=== PATIENT | female | born 1980 | race Caucasian/White ===

== ENCOUNTER 2016-09-02 21:02 | Emergency (ER) | payer OTHER ==
[~2016-09-02] VITALS: Ht 160 cm; Wt 78.6 kg
[~2016-09-02 21:02] MED LIST: DPPI150 IM; MTR/600 PO; PRENTAB26 PO
[2016-09-02 21:07] VITALS: TEMP 37; Ht 160 cm; Wt 78.6 kg
[2016-09-02] MEDS ORDERED: SODIUM CHLORIDE 0.9% 1000ML 500 ML IV STA (21:25)
[2016-09-02] MEDS ORDERED: LORAZEPAM 2 MG/ML 1 ML VIAL IV STA (21:25)
--- NOTE | 2016-09-02 21:36 | EMERGENCY ROOM VISIT NOTE ---
History Report prepared by Prince: Irena Langston Under the Supervision of: Dr. Sanjeev Glynn M.D. First contact with patient: 21:10 Chief Complaint: WEAKNESS Stated Complaint: WEAK, SHAKING History of Present Illness The patient is a 36 year old female who presents to the Emergency Room with complaints of worsening neurological symptoms for the past month. Before [place] the patient started experiencing numbness in her left hand that slowly progressed up her arm and into her neck. Shortly after that she developed numbness in her left foot. She saw her PCP for these symptoms and had an x-ray of her lumbar spine. Today at work she developed a pressure in her head that went down the back of her neck. She describes a "squeezing" feeling and numbness and tingling in her neck. The patient reports, "It feels like there is a scarf wrapped really tightly around my neck." She took 2 Excedrin Migraine today after work and got in the shower. While in the shower she developed shaking and tremors. She has been experiencing this shaking for the past 2 hours. She states that her left arm and leg are still numb. She is feeling generally weak. She also notes nausea and tachycardia. She felt feverish at home. The patient rates her pain as a 4.5/10 in severity. She did not drink very much water today. She denies any history of migraine headaches. The patient has an appointment with Dr. Dee of neurology on September 27. She denies urinary symptoms, abdominal pain, LOC and passing out. She denies any new or worsening stress in her left. She reports a history of serotonin syndrome. She currently takes Zoloft and Trazodone. These medications were last adjusted in June. Source of History: patient Onset: 1 month ago Position: other (neurological) Symptom Intensity: 4.5/10 Quality: numbness, other (weakness) Timing: worsening Associated Symptoms: + fevers, + headache, + nausea, + neck pain, + numbness , + weakness, No LOC, No abdominal pain, No urinary symptoms Note: Pt notes shaking and tremors. Review of Systems See HPI for pertinent positives & negatives. A total of 10 systems reviewed and were otherwise negative. Past Medical & Surgical Medical Problems: (1) Gestational diabetes mellitus (2) Intrauterine (3) Leakage of amniotic fluid (4) Mild pre-eclampsia (5) Onset (spontaneous) of labor after 37 completed weeks of gestation but before 39 completed weeks gestation, with delivery by (planned) section (6) Superficial phlebitis Surgical Problems: (1) Previous section complicating , antepartum condition or complication Family History Cancer Diabetes mellitus Gallbladder disease Heart disease Hypertension Lung disease Social History Smoking Status: Never Smoker Alcohol Use: none Drug Use: none Marital Status: Housing Status: lives with family Occupation Status: student Current/Historical Medications Scheduled Doxycycline Hyclate (Doxycycline Hyclate), 20 MG PO DAILY Fish Oil (Toano-3), 1 CAP PO DAILY Levonorgestrel (Iud) (Mirena), 20 MCG INT UTER UD Multiple Vitamins W/ Minerals (Womens One Daily), 1 TAB PO DAILY Ranitidine (Zantac), 150 MG PO BID Sertraline HCl (Sertraline HCl), 50 MG PO DAILY Trazodone Hcl (Trazodone), 25 MG PO HS Scheduled PRN Ibuprofen (Advil), 800 MG PO BID PRN for Pain Polyethylene (Polyethylene Glycol 3350), 1 TBS PO Q2D PRN for Constipation Allergies Coded Allergies: Nalbuphine (Verified Allergy, Severe, NAUSEA, 12/29/15) Propofol (Verified Allergy, Unknown, depressed and crying, 11/11/15) Uncoded Allergies: ADHESIVE (Allergy, Unknown, rash, 11/11/15) Physical Exam Vital Signs Date Time Temp Pulse Resp B/P Pulse Ox O2 Delivery O2 Flow Rate FiO2 09/03/16 00:16 73 16 124/67 98 09/02/16 23:16 93 18 129/72 96 Room Air 09/02/16 21:45 Room Air 09/02/16 21:07 37.0 98 20 148/103 98 Room Air Physical Exam GENERAL: Patient is in no acute distress. HEENT: No acute trauma, normocephalic atraumatic, mucous membranes moist, no nasal congestion, no scleral icterus. NECK: No stridor, no adenopathy, no meningismus, trachea is midline. LUNGS: Clear to auscultation bilaterally, no wheeze, no rhonchi, breath sounds equal. HEART: Without murmurs gallops or rubs, regular rate and rhythm. ABDOMEN: Soft, nontender, bowel sounds positive, no hernias, no peritonitis. EXTREMITIES: No cyanosis or edema, full range of motion of all the joints without pain or difficulty, no signs for acute trauma. NEUROLOGIC: Awake and alert, no speech slur or facial droop. Normal cerebellar dysfunction bilaterally, no pronator drift. Generalized tremor to all extremities. SKIN: No rash, no jaundice, no diaphoresis. Medical Decision & Procedures ER Provider Diagnostic Interpretation: Radiology results and stated below per my review and radiologist interpretation: MRI HEAD: No acute infarct, mass effect or evidence of acute hemorrhage No evidence of abnormal enhancement A couple of small scattered white matter foci of T2 prolongation are nonspecific Can be seen with migraines, demyelinating process, collagen vascular disease, chronoic small vessel ischemic change Ventricles are within limits and midline Major intracranial flow voids appear within limits Radiologist: Bennett Morrell M.D. MRI C SPINE: Mild posterior disc osteophyte complexes C5-6 and C6-7 with appearance of mild indentation on the ventral surface of the code at C5-6 in combination with focal prominence of the posterior ligaments at C6-7 results in very mild indentation on the dorsal surface of the cord for example sagittal 7 of series 10 No evidence of abnormal cord signal No evidence of abnormal enhancement Radiologist: Bennett Morrell M.D. Laboratory Results 09/02/16 21:55 Red Blood Count 4.30, Mean Corpuscular Volume 92.6, Mean Corpuscular Hemoglobin 32.1, Mean Corpuscular Hemoglobin Concent 34.7, Mean Platelet Volume 10.0, Neutrophils (%) (Auto) 74.6, Lymphocytes (%) (Auto) 15.5, Monocytes (%) (Auto) 7.9, Eosinophils (%) (Auto) 1.6, Basophils (%) (Auto) 0.2, Neutrophils # (Auto) 8.75, Lymphocytes # (Auto) 1.82, Monocytes # (Auto) 0.93, Eosinophils # (Auto) 0.19, Basophils # (Auto) 0.02 09/02/16 21:55 Test 09/02/16 21:55 White Blood Count 11.73 K/uL (4.8-10.8) Red Blood Count 4.30 M/uL (4.2-5.4) Hemoglobin 13.8 g/dL (12.0-16.0) Hematocrit 39.8 % (37-47) Mean Corpuscular Volume 92.6 fL (80-100) Mean Corpuscular Hemoglobin 32.1 pg (25-34) Mean Corpuscular Hemoglobin Concent 34.7 g/dl (32-36) Platelet Count 328 K/uL (130-400) Mean Platelet Volume 10.0 fL (7.4-10.4) Neutrophils (%) (Auto) 74.6 % Lymphocytes (%) (Auto) 15.5 % Monocytes (%) (Auto) 7.9 % Eosinophils (%) (Auto) 1.6 % Basophils (%) (Auto) 0.2 % Neutrophils # (Auto) 8.75 K/uL (1.4-6.5) Lymphocytes # (Auto) 1.82 K/uL (1.2-3.4) Monocytes # (Auto) 0.93 K/uL (0.11-0.59) Eosinophils # (Auto) 0.19 K/uL (0-0.5) Basophils # (Auto) 0.02 K/uL (0-0.2) RDW Standard Deviation 41.6 fL (36.4-46.3) RDW Coefficient of Variation 12.3 % (11.5-14.5) Immature Granulocyte % (Auto) 0.2 % Immature Granulocyte # (Auto) 0.02 K/uL (0.00-0.02) Anion Gap 10.0 mmol/L (3-11) Est Creatinine Clear Calc Drug Dose 89.4 ml/min Estimated GFR () 99.4 Estimated GFR (Non- 85.7 BUN/Creatinine Ratio 19.7 (10-20) Calcium Level 9.2 mg/dl (8.5-10.1) Magnesium Level 2.0 mg/dl (1.8-2.4) Total Bilirubin 0.3 mg/dl (0.2-1) Aspartate Amino Transf (AST/SGOT) 15 U/L (15-37) Alanine Aminotransferase (ALT/SGPT) 19 U/L (12-78) Alkaline Phosphatase 62 U/L (45-117) Total Creatine Kinase 157 U/L (26-192) Total Protein 7.9 gm/dl (6.4-8.2) Albumin 4.5 gm/dl (3.4-5.0) Globulin 3.4 gm/dl (2.5-4.0) Albumin/Globulin Ratio 1.3 (0.9-2) Thyroid Stimulating Hormone (TSH) 7.500 uIu/ml (0.300-4.500) Free Thyroxine 0.83 ng/dl (0.80-1.60) Human Chorionic Gonadotropin, Qual NEG (NEG) Lyme Disease IgG Antibody NEG (NEG) Lyme Disease IgM Antibody NEG (NEG) Laboratory results reviewed by me. Medications Administered Medications (Trade) Dose Ordered Sig/Dom Route Start Time Stop Time Status Last Admin Dose Admin Sodium Chloride (Nss 1000ml) 500 ml @ 999 mls/hr Q31M STAT IV 09/02/16 21:25 09/02/16 21:55 DC 09/02/16 21:56 999 MLS/HR Lorazepam (Ativan Inj) 1 mg NOW STAT IV 09/02/16 21:25 09/02/16 21:31 DC 09/02/16 21:56 1 MG ECG Indication: weakness Rate (beats per minute): 86 Rhythm: sinus with SA Findings: no acute ischemic change, no ectopy ED Course 2109: The patient was evaluated in room B9. A complete history and physical exam was performed. 5: Ativan 1 mg IV, NSS 500 ml @ 999 mls/hr IV 2330: Gadavist 8 mmol IV 2354: I updated the patient on her results. 2357: At this time I spoke with Dr. Tapia of [facility] neurology. We discussed the patient's results and treatment plan. The patient will follow-up with neurology in the office at her scheduled appointment with Dr. Dee. 0001: I reassessed the patient at this time. She is feeling better and resting comfortably. I discussed the results and treatment plan with the patient. I answered all pertaining questions that she had. She expressed understanding and verbalized agreement. The patient will be discharged home. Medical Decision Differential diagnoses includes medication reaction, anxiety, stroke, MS, transverse myelitis, intracranial mass, cervical disc disease, electrolyte imbalance, thyroid disorder. There is a mild leukocytosis, this could be consistent with infection or just her stress and worry. There was no anemia. No significant electrolyte abnormality, kidney failure or hepatitis. The patient appears to be in a euthyroid state. testing is negative. Lyme disease testing is negative. EKG shows a normal sinus rhythm, no acute ischemia. Brain MRI shows a few white plaques of unknown significance, follow-up was suggested. There was no tumor or stroke findings. Cervical spine MRI does not show evidence for cord abnormality. There was some disc disease present with some subtle pinching of the cervical cord. The patient received IV saline, IV Ativan. She seems better. I discussed her case with the on-call neurologist. Follow up as an outpatient was suggested. At this point, the cause for the entire presentation is unclear. She will need close neurologic follow-up in the future, she understands. Consults Time Called: [phone] Consulting Physician: Dr. Tapia Returned Call: [phone] At this time I spoke with Dr. Tapia of [facility] neurology. We discussed the patient's results and treatment plan. The patient will follow-up with neurology in the office at her scheduled appointment with Dr. Dee. Impression Primary Impression: Left sided numbness Additional Impression: Tremor Scribe Attestation The scribe's documentation has been prepared under my direction and personally reviewed by me in its entirety. I confirm that the note above accurately reflects all work, treatment, procedures, and medical decision making performed by me. Departure Information Dispostion Home / Self-Care Referrals No Doctor, Assigned (PCP) Forms HOME CARE DOCUMENTATION FORM, IMPORTANT VISIT INFORMATION Patient Instructions A Signature Page, My [employer] Additional Instructions more supportive pillow as discussed return if worsening lab testing was all ok follow with neurology for recheck and for more discussion on your MRI results
[2016-09-02] MEDS ORDERED: LEVOIUD INT UTER (21:59)
[2016-09-02] MEDS ORDERED: IBUP-1050 PO (21:59)
[2016-09-02] MEDS ORDERED: DOXY20TA3 PO (21:59)
[2016-09-02] MEDS ORDERED: TRAZ50TA35 PO (21:59)
[2016-09-02] MEDS ORDERED: MULT-240 PO (21:59)
[2016-09-02] MEDS ORDERED: ZLF/50 PO (21:59)
[2016-09-02] MEDS ORDERED: ZNTT/150 PO (21:59)
[2016-09-02] MEDS ORDERED: MRLP527 PO (22:03)
[2016-09-02] MEDS ORDERED: OMEG10007 PO (22:03)
[2016-09-02 22:07] LABS: BASO % 0.2 %; BASO ABS # 0.02 K/uL (0-0.2); COMPLETE YES; EOS % 1.6 %; HEMATOCRIT 39.8 % (37-47); IG% 0.2 %; LYMPH % 15.5 %; LYMPH ABS # 1.82 K/uL (1.2-3.4); MEAN CELL VOLUME 92.6 fL (80-100); MEAN CORPUSCULAR HEMOGLOBIN 32.1 pg (25-34); MEAN CORPUSCULAR HGB CONC 34.7 g/dl (32-36); MONO % 7.9 %; NEUT % 74.6 %; PLATELET COUNT 328 K/uL (130-400); WHITE BLOOD COUNT 11.73 K/uL (4.8-10.8)
[2016-09-02 22:38] LABS: BUN/CREATININE RATIO 19.7 (10-20); CALCIUM 9.2 mg/dl (8.5-10.1); CREATININE 0.88 mg/dl (0.60-1.20); POTASSIUM 3.5 mmol/L (3.5-5.1)
[2016-09-02 22:47] LABS: ALB/GLOB RATIO 1.3 (0.9-2); THYROID STIMULATING HORMONE 7.5 uIu/ml (0.300-4.500)
[2016-09-02 23:18] LABS: PREG INTERNAL NEGATIVE QC NEG CLEAR BACKGROUND; PREG INTERNAL POSITIVE QC POS CONTROL LINE
[2016-09-02] MEDS ORDERED: GADAVIST IV PRN (23:30)
[2016-09-02 23:39] LABS: LYME DISEASE AB IGG NEG (NEG); LYME DISEASE AB IGM NEG (NEG)
[2016-09-03 00:16] VITALS: BP 124/67; PULSE 73; O2SAT 98
--- NOTE | 2016-09-03 06:45 | DIAGNOSTIC IMAGING REPORT ---
MRI OF THE BRAIN WITHOUT AND WITH IV CONTRAST CLINICAL HISTORY: Left-sided weakness. Possible stroke. COMPARISON STUDY: Head CT December 31, 2012. TECHNIQUE: Utilizing a 1.5 Oly magnet and dedicated coil, multiplanar, multiecho imaging of the brain was performed pre and postcontrast administration. IV administration of 8 mL of Gadavist contrast was uneventful. FINDINGS: There are no areas of restricted diffusion. No acute intracranial hemorrhage, midline shift or mass effect is present. Brain volume is normal. Ventricular system is normal. The basilar cisterns are patent. There are no extra-axial collections. Flow-voids for the major intracranial vessels are present. There are no intracranial masses or areas of pathologic enhancement. Note is made of multiple small white matter T2 hyperintense foci. These are predominantly within the deep white matter. A few periventricular foci are present. Calvarial signal is maintained. Orbits and sinuses are unremarkable. IMPRESSION: 1. No acute intracranial findings. 2. No intracranial masses or pathologic enhancement. 3. Numerous small white matter T2 hyperintense foci. These are entirely nonspecific. Differential considerations include sequela of migraine headaches, small vessel disease (although greater than expected for age) or demyelinating disease. The appearance is not strongly suggestive of multiple sclerosis but this remains within the differential. Electronically signed by: Naga Borges M.D. 09/03/2016 6:43 AM Dictated Date/Time: 09/03/2016 6:38 AM
--- NOTE | 2016-09-03 06:51 | DIAGNOSTIC IMAGING REPORT ---
MRI OF THE CERVICAL SPINE WITH AND WITHOUT CONTRAST CLINICAL HISTORY: Left sided weakness. COMPARISON: TECHNIQUE: Utilizing a 1.5 Oly magnet and dedicated coil, multiplanar, multiecho imaging of the cervical spine was performed before and after intravenous administration of 8 of Gadavist. FINDINGS: There is reversal of the normal cervical lordosis. Vertebral body heights are maintained. There is no suspicious marrow replacement. A T1 and T2 hypointense abdomen within the T1 vertebral body is likely benign. This corresponds to a sclerotic lesion shown on prior chest CT of November 11, 2015. This is unchanged. Cervical signal and caliber are normal. There is no intracanalicular mass or fluid collection. There is no abnormal enhancement within the canal. C2-C3: The central canal and neural foramen are patent. C3-C4: The central canal and neural foramen are patent. C4-C5: The central canal and the neural foramen are patent. C5-C6: Posterior disc osteophyte complex indents the ventral aspect of the cord. There is no cord signal abnormality. This results in mild central canal stenosis. There is mild narrowing of the bilateral neural foramen. C6-C7: Posterior disc osteophyte complex and prominence of the posterior elements results in mild narrowing of the central canal. There is mild narrowing of both neural foramen. C7-T1: The central canal and neural foramen are patent. IMPRESSION: 1. Normal cervical cord signal and caliber. 2. Posterior disc osteophyte complexes at the C5-C6 and C6-C7 level, as described above. The findings result in mild narrowing of the central canal. 3. Reversal of the normal cervical lordosis. Electronically signed by: Naga Borges M.D. 09/03/2016 6:49 AM Dictated Date/Time: 09/03/2016 6:43 AM
== END 2016-09-03 00:16 | disposition home or self-care (01) ==
LOC: C.EDB 21:05
DX: R20.0 Anesthesia of skin (principal); R25.1 Tremor, unspecified

== ENCOUNTER 2017-04-29 05:01 | Emergency (ER) | payer OTHER ==
[~2017-04-29] VITALS: Ht 160 cm; Wt 73.0 kg
[~2017-04-29 05:01] MED LIST changes: +DOXY20TA3 PO; -DPPI150 IM; +IBUP-1050 PO; +LEVOIUD INT UTER; +MRLP527 PO; -MTR/600 PO; +MULT-240 PO; +OMEG10007 PO; -PRENTAB26 PO; +TRAZ50TA35 PO; +ZLF/50 PO; +ZNTT/150 PO
[2017-04-29 05:05] VITALS: TEMP 37; Ht 160 cm; Wt 73.0 kg
[2017-04-29] MEDS ORDERED: DiphenhydrAMINE HCL 50 MG/ML VIAL IV STA ×2 (05:12→06:30)
[2017-04-29] MEDS ORDERED: SODIUM CHLORIDE 0.9% 1000ML 1,000 ML IV STA (05:12)
[2017-04-29] MEDS ORDERED: METOCLOPRAMIDE HCL INJ 5 MG/ML 2 ML VIAL IV STA (05:12)
--- NOTE | 2017-04-29 06:17 | DIAGNOSTIC IMAGING REPORT ---
HEAD WITHOUT CONTRAST (CT) CLINICAL HISTORY: 36 years-old Female with BERRIOS. Acute headache and vomiting. TECHNIQUE: Multiple axial CT images of the head were obtained without contrast. A dose lowering technique was utilized adhering to the principles of ALARA. CT DOSE: 614.27 mGy.cm COMPARISON: CT head 12/31/2012. FINDINGS: No acute intracranial hemorrhage, midline shift, mass, large territorial ischemia or abnormal extra-axial collection. The calvarium is intact. Small left mastoid effusion is noted. Paranasal sinuses are clear. Soft tissues are unremarkable and the orbits are symmetric. IMPRESSION: 1. No acute intracranial abnormality. 2. Small left mastoid effusion. The above report was generated using voice recognition software. It may contain grammatical, syntax or spelling errors. Electronically signed by: Mark Cheung M.D. 04/29/2017 6:16 AM Dictated Date/Time: 04/29/2017 6:14 AM
[2017-04-29] MEDS ORDERED: KETOROLAC TROMETHAMINE 30 MG/ML VIAL IV STA (06:24)
[2017-04-29 06:25] LABS: BASO % 0.3 %; BASO ABS # 0.02 K/uL (0-0.2); COMPLETE YES; EOS % 3.4 %; HEMATOCRIT 48.7 % (37-47); IG% 0.2 %; LYMPH % 27.8 %; LYMPH ABS # 1.71 K/uL (1.2-3.4); MEAN CELL VOLUME 93.5 fL (80-100); MEAN CORPUSCULAR HGB CONC 35.3 g/dl (32-36); MEAN PLATELET VOLUME 11.5 fL (7.4-10.4); MONO % 10.1 %; NEUT % 58.2 %; PLATELET COUNT 238 K/uL (130-400); RED BLOOD COUNT 5.21 M/uL (4.2-5.4); WHITE BLOOD COUNT 6.16 K/uL (4.8-10.8)
[2017-04-29] MEDS ORDERED: PROCHLORPERAZINE 5 MG/ML 2 ML VIAL IV STA (06:30)
[2017-04-29] MEDS ORDERED: POTA1TAB97 PO (06:55)
[2017-04-29] MEDS ORDERED: LORA-741 PO (06:56)
[2017-04-29] MEDS ORDERED: BUPRTAB51 PO (06:57)
--- NOTE | 2017-04-29 06:57 | EMERGENCY ROOM VISIT NOTE ---
History First contact with patient: 05:10 Chief Complaint: HEADACHE Stated Complaint: BERRIOS,N/V History of Present Illness The patient is a 36 year old female who presents to the Emergency Room with complaints of headache for the past day described as throbbing, ranging in severity 8 out of 10 to the right occipital region with nausea and vomiting. Patient tried Imitrex and a Percocet with no relief of symptoms. Patient states this feels slightly different than her typical headaches. Patient denies fevers, numbness, tingling, neck stiffness, sore throat, cold symptoms, localized weakness, vision problems, chest pain, dyspnea, abdominal pain, weakness. Headache was not sudden in onset. Review of Systems See HPI for pertinent positives & negatives. A total of 10 systems reviewed and were otherwise negative. Past Medical/Surgical History Medical Problems: (1) Gestational diabetes mellitus (2) Intrauterine (3) Leakage of amniotic fluid (4) Mild pre-eclampsia (5) Onset (spontaneous) of labor after 37 completed weeks of gestation but before 39 completed weeks gestation, with delivery by (planned) section (6) Superficial phlebitis Surgical Problems: (1) Previous section complicating , antepartum condition or complication Family History Cancer Diabetes mellitus Gallbladder disease Heart disease Hypertension Lung disease Social History Smoking Status: Never Smoker Alcohol Use: none Drug Use: none Marital Status: Housing Status: lives with family Current/Historical Medications Scheduled Doxycycline Hyclate (Doxycycline Hyclate), 20 MG PO DAILY Fish Oil ([place]-3), 1 CAP PO DAILY Levonorgestrel (Iud) (Mirena), 20 MCG INT UTER UD Multiple Vitamins W/ Minerals (Womens One Daily), 1 TAB PO DAILY Potassium Chloride (K-Tab), 20 MEQ PO BID Ranitidine (Zantac), 150 MG PO BID Sertraline HCl (Sertraline HCl), 50 MG PO DAILY Trazodone Hcl (Trazodone), 100 MG PO HS Scheduled PRN Ibuprofen (Advil), 800 MG PO BID PRN for Pain Lorazepam (Ativan), 0.5 MG PO TID PRN for Anxiety Polyethylene (Polyethylene Glycol 3350), 1 TBS PO Q2D PRN for Constipation Physical Exam Vital Signs Date Time Temp Pulse Resp B/P (MAP) Pulse Ox O2 Delivery O2 Flow Rate FiO2 04/29/17 06:44 66 18 127/84 99 Room Air 04/29/17 05:05 37.0 76 20 180/87 100 Room Air Physical Exam VITALS: Vitals are noted on the nurse's note and reviewed by myself. Vital signs hypertensive. GENERAL: Pleasant female, in no acute distress, nondiaphoretic, well-developed well-nourished. SKIN: The skin was without rashes, erythema, edema, or bruising. There is no tenting of the skin. Capillary reflex less than 2 seconds. HEAD: Normocephalic atraumatic. EARS: External auditory canals clear, tympanic membranes pearly escobar without erythema or effusion bilaterally. EYES: Pupils equal round and reactive to light and accommodation. Conjunctivae without injection, sclerae without icterus. Extraocular movements intact. NOSE: Patent, turbinates without inflammation or discharge. No sinus tenderness. MOUTH: Mucous membranes moist. Pharynx without erythema or exudate. Uvula midline. Airway patent. Tongue does not deviate. NECK: Supple without nuchal rigidity. No lymphadenopathy. No thyromegaly. Cervical spine is nontender. No JVD. No meningeal signs HEART: Regular rate and rhythm without murmurs gallops or rubs. LUNGS: Clear to auscultation bilaterally without wheezes, rales or rhonchi. No dullness to percussion. No retractions or accessory muscle use. ABDOMEN: Positive bowel sounds x 4. Normal tympanic percussion. Soft, nontender, without masses or organomegaly. Pa sign negative. No guarding or rebound tenderness. MUSCULOSKELETAL: No muscle atrophy, erythema, or edema noted. NEURO: Patient was alert and oriented to person place and time. Normal sensation to light and sharp touch. No focal neurological deficits. Cranial nerves II through XII grossly intact. No pronator drift. Cerebellar exam intact. Medical Decision & Procedures Laboratory Results 04/29/17 06:05 Red Blood Count 5.21, Mean Corpuscular Volume 93.5, Mean Corpuscular Hemoglobin 33.0, Mean Corpuscular Hemoglobin Concent 35.3, Mean Platelet Volume 11.5, Neutrophils (%) (Auto) 58.2, Lymphocytes (%) (Auto) 27.8, Monocytes (%) (Auto) 10.1, Eosinophils (%) (Auto) 3.4, Basophils (%) (Auto) 0.3, Neutrophils # (Auto ) 3.59, Lymphocytes # (Auto) 1.71, Monocytes # (Auto) 0.62, Eosinophils # (Auto ) 0.21, Basophils # (Auto) 0.02 Test 04/29/17 06:05 White Blood Count 6.16 K/uL (4.8-10.8) Red Blood Count 5.21 M/uL (4.2-5.4) Hemoglobin 17.2 g/dL (12.0-16.0) Hematocrit 48.7 % (37-47) Mean Corpuscular Volume 93.5 fL (80-100) Mean Corpuscular Hemoglobin 33.0 pg (25-34) Mean Corpuscular Hemoglobin Concent 35.3 g/dl (32-36) Platelet Count 238 K/uL (130-400) Mean Platelet Volume 11.5 fL (7.4-10.4) Neutrophils (%) (Auto) 58.2 % Lymphocytes (%) (Auto) 27.8 % Monocytes (%) (Auto) 10.1 % Eosinophils (%) (Auto) 3.4 % Basophils (%) (Auto) 0.3 % Neutrophils # (Auto) 3.59 K/uL (1.4-6.5) Lymphocytes # (Auto) 1.71 K/uL (1.2-3.4) Monocytes # (Auto) 0.62 K/uL (0.11-0.59) Eosinophils # (Auto) 0.21 K/uL (0-0.5) Basophils # (Auto) 0.02 K/uL (0-0.2) RDW Standard Deviation 41.6 fL (36.4-46.3) RDW Coefficient of Variation 12.2 % (11.5-14.5) Immature Granulocyte % (Auto) 0.2 % Immature Granulocyte # (Auto) 0.01 K/uL (0.00-0.02) Medications Administered Medications (Trade) Dose Ordered Sig/Dom Route Start Time Stop Time Status Last Admin Dose Admin Metoclopramide HCl (Reglan Inj) 10 mg NOW STAT IV 04/29/17 05:12 04/29/17 05:15 DC 04/29/17 06:07 10 MG Diphenhydramine HCl (Benadryl Inj) 12.5 mg NOW STAT IV 04/29/17 05:12 04/29/17 05:15 DC 04/29/17 06:07 12.5 MG Sodium Chloride 1,000 ml @ 999 mls/hr Q1H1M STAT IV 04/29/17 05:12 04/29/17 06:12 DC 04/29/17 06:07 999 MLS/HR Ketorolac Tromethamine (Toradol Inj) 30 mg NOW STAT IV 04/29/17 06:24 04/29/17 06:26 DC 04/29/17 06:38 30 MG Prochlorperazine Edisylate (Compazine Inj) 10 mg NOW STAT IV 04/29/17 06:30 04/29/17 06:31 DC 04/29/17 06:37 10 MG Diphenhydramine HCl (Benadryl Inj) 12.5 mg NOW STAT IV 04/29/17 06:30 04/29/17 06:31 DC 04/29/17 06:38 12.5 MG ED Course Prior records/ancillary studies reviewed. Additional history obtained from family. Triage Nursing notes reviewed. The patient's history was concerning for headache. Differential diagnosis: Etiologies such as migraine headache, meningitis, sinusitis, CO exposure, ICH, SAH, infection, tumor, headache, sinus thrombosis, arterial dissection, as well as others were entertained. Physical examination findings: As above. Non-focal. ER treatment provided: Reglan, Benadryl, IV fluids, Toradol, Compazine On reassessment the patient felt better. Diagnostics interpreted by me: Imaging studies: CT negative for intracranial bleed per radiology This appears to be consistent with migraine. Patient was neurovascularly and neurologically intact. She is well-appearing. No signs of meningitis. She felt better after being medicated as above. She is advised follow-up family care in a few days or here in the ER sooner for headache, neck stiffness, weakness, worsening signs or symptoms or as needed. By the evaluation outlined above emergent etiologies such as meningitis, sinusitis, CO exposure, ICH, SAH, infection, temporal arteritis, tumor, sinus thrombosis, arterial dissection, as well as others were deemed relatively unlikely. The pt informed about the findings as listed above. All questions were answered and pleased with the treatment. Return instructions were outlined and the patient was discharged in stable condition. Case reviewed by attending Referral: The patient was referred back to their primary care physician for follow-up in 2 to 3 days for a recheck of the current condition. Medical Decision As above Medication Reconcilliation Current Medication List: was personally reviewed by me Blood Pressure Screening Patient's blood pressure: Elevated blood pressure Blood pressure disposition: Referred to PCP Impression Primary Impression: Migraine Departure Information Dispostion Home / Self-Care Condition GOOD Referrals Braulio Tompkins, D.OAbdulaziz (PCP) Patient Instructions [facility] Additional Instructions DO NOT drive, drink alcohol, operate machinery, or perform dangerous activities today. You were given medications in the ER that can affect your ability to safely function or operate a vehicle. Rest today in a quiet, peaceful, dark environment and get a full 8-10 hrs of sleep tonight. Avoid loud noises, smoke/smoking, alcohol, bright lights, stress, or physical exertion today to minimize the chance the headache may return. Continue current medications. Ibuprofen(Motrin, Advil) may be used for fever or pain. Use 600mg every six hours as needed. Take with food. Avoid using more than 2400mg in a 24 hour period. Do not use 2400mg per day for more than three consecutive days without physician direction. Prolonged inappropriate use can lead to stomach upset or ulcers. (AND/OR) Acetaminophen(Tylenol) may be used for fever or pain. Use 1000mg every six hours as needed. Avoid using more than 3000mg in a 24 hour period. Return to the ER for passing out, worsening headache, vision problems, neck stiffness/pain, fevers, vomiting, worsening of your condition, or as needed. Follow up with your primary physician and/or a neurologist in 2-3 days for a recheck of your current condition. Problem Qualifiers Primary Impression: Migraine Migraine type: without aura Status migrainosus presence: without status migrainosus Intractability: not intractable Qualified Codes: G43.009 - Migraine without aura, not intractable, without status migrainosus
[2017-04-29] MEDS ORDERED: BUSP5TAB59 PO (06:59)
[2017-04-29] MEDS ORDERED: SUMA50TA15 PO (07:00)
[2017-04-29 07:07] VITALS: BP 127/84; PULSE 66; O2SAT 99
== END 2017-04-29 07:08 | disposition home or self-care (01) ==
LOC: C.EDB 05:02
DX: G43.009 Migraine without aura, not intractable, without status migrainosus (principal); Z86.32 Personal history of gestational diabetes; Z87.59 Personal history of other complications of pregnancy, childbirth and the puerperium; Z98.891 History of uterine scar from previous surgery; Z83.3 Family history of diabetes mellitus; Z82.49 Family history of ischemic heart disease and other diseases of the circulatory system

== ENCOUNTER → 2017-11-01 | Outpatient (CLI) | payer OTHER ==
[~2017-11-01] MED LIST changes: +BUPRTAB51 PO; +BUSP5TAB59 PO; +LEVO1IUD2 INT UTER; -LEVOIUD INT UTER; +LORA-741 PO; -MULT-240 PO; -OMEG10007 PO; +POTA1TAB97 PO; +RANI150T85 PO; +SUMA50TA15 PO; -ZLF/50 PO; -ZNTT/150 PO
== END | disposition home or self-care (01) ==
LOC: C.PAPS 13:23
PROVIDERS: ATTEND Obstetrics & Gynecology
DX: Z30.40 Encounter for surveillance of contraceptives, unspecified (principal); Z01.411 Encounter for gynecological examination (general) (routine) with abnormal findings; R87.610 Atypical squamous cells of undetermined significance on cytologic smear of cervix (ASC-US)

== ENCOUNTER 2019-02-04 08:17 | Observation (INO) ==
--- NOTE | 2019-01-14 11:35 | Anesthesiology Consultation ---
Date of Service January 14, 2019 Assessment & Plan (1) Encounter for pre-operative examination: TEST AM DOS Chart Review Chart Review: Acceptable Risk for Surgery and Patient NOT seen in Pre Admission Testing History Surgery Operation Date: 02/04/19 09:50 Proposed Procedures p L5-S1 Discectomy - Eric Dominguez DO Height/Weight Height: 5 ft 3 in Weight: 74.843 kg Allergies Allergy/AdvReac Type Severity Reaction Status Date / Time nalbuphine AdvReac Severe NAUSEA Verified 01/01/19 13:45 propofol AdvReac Unknown depressed Verified 01/01/19 13:45 and crying ADHESIVE Allergy Unknown rash Uncoded 01/01/19 13:45 Medications Home Medications Medication Instructions Recorded Confirmed Last Taken bupropion HCl [Wellbutrin XL] 300 mg PO QAM 01/01/19 01/01/19 Unknown cholecalciferol (vitamin D3) 2,000 unit PO DAILY 01/01/19 01/01/19 Unknown [Vitamin D3] cranberry 500 mg PO DAILY 01/01/19 01/01/19 Unknown doxylamine succinate [Unisom 25 mg PO HS PRN 01/01/19 01/01/19 Unknown (doxylamine)] levonorgestrel [Mirena] 1 dose INTRAUTERINE UD 01/01/19 01/01/19 Unknown lorazepam 0.5 mg PO TID PRN 01/01/19 01/01/19 Unknown magnesium oxide 400 mg PO HS 01/01/19 01/01/19 Unknown multivitamin 1 tab PO DAILY 01/01/19 01/01/19 Unknown polyethylene glycol 3350 [Miralax] 17 g PO 2XWK 01/01/19 01/01/19 Unknown ranitidine HCl [Zantac] 150 mg PO BID 01/01/19 01/01/19 Unknown riboflavin (vitamin B2) [Vitamin 100 mg PO QAM 01/01/19 01/01/19 Unknown B-2] sumatriptan succinate [Imitrex] 1 tab PO UD PRN 01/01/19 01/01/19 Unknown Past Medical History Medical History Anemia RELATED Anxiety Chronic back pain LEFT LEG NUMB AND WEAK, RIGHT LEG HAS PAIN. Depression Disc herniation L4 GERD (gastroesophageal reflux disease) Hiatal hernia Migraine Nausea and vomiting after administration of anesthetic agent Serotonin syndrome H/O (2016) Past Surgical History Surgical History History of section X2 History of cholecystectomy LAP S/P ERCP 2011 [facility], MAC 3, ETT 7.0, "easy intubation" grade view II. History of PONV History of PONV Social History Smoking Status: Never smoker Do You Dip or Chew Tobacco: No Hx Alcohol Use: No Hx Substance Use: No substance use type: does not use Testing Laboratory Results 01/09/19 WBC: 9.98 H/H: 14.7/42.5 PLATELETS: 309
--- NOTE | 2019-02-01 10:35 | History and Physical Report ---
DATE OF ADMISSION: 02/04/2019 CHIEF COMPLAINT: Back and lower extremity difficulty. Working diagnosis of disc herniation, lumbar spine, L5-S1. MEDICAL HISTORY: Positive for mitral valve prolapse, anxiety. No hypertension, COPD, diabetes. SURGICAL HISTORY: , cholecystectomy, bunion surgery. ALLERGIES: ADHESIVE TAPE. FAMILY HISTORY: Heart disease, diabetes, breast CA. SOCIAL HISTORY: She is . No alcohol. REVIEW OF SYSTEMS: Twelve system review is negative for fevers, sweats, chills. Ear, nose and throat negative. Denies chest pain, palpitation or heart beat changes. Denies asthma, wheezing, shortness of breath. No nausea, vomiting, no bowel and bladder issues. Positive for depression. She has joint pain as well. MEDICATIONS: Ventolin, Biotin, cholecalciferol, gabapentin, ibuprofen, ketorolac. OBJECTIVE: GENERAL: She is alert, oriented, pleasant young lady. She is 5 feet 3 inches, 150 moderate distress. VITAL SIGNS: Blood pressure 130/80, pulse 80, respiration 16. HEENT: Pupils react to light and accommodation. Ear, nose and throat clear. CARDIAC: Normal S1, S2. LUNGS: Clear. ABDOMEN: Soft, nontender. MUSCULOSKELETAL: She has pain with flexion and extension of the spine. Pain with straight leg raising, numbness and tingling, and loss of strength. PLAN: Includes a lumbar spine discectomy L5-S1.
[~2019-02-04 08:17] MED LIST changes: +ACETAMINOPHEN 1,000 MG/100 ML VIAL IV SCH; -BUPRTAB51 PO; -BUSP5TAB59 PO; +CEFAZOLIN 2000MG 2,000 MG/15 ML SYR IV SCH; -DOXY20TA3 PO; -IBUP-1050 PO; -LEVO1IUD2 INT UTER; -LORA-741 PO; +LR 15ML/HR IV SCH; -MRLP527 PO; -POTA1TAB97 PO; -RANI150T85 PO; +SODIUM CHLORIDE 0.9% 1,000 ML IV SCH; -SUMA50TA15 PO; -TRAZ50TA35 PO
[2019-02-04] MEDS ORDERED: MIDAZOLAM HCL 1 MG/ML 2ML VIAL ONE (08:33)
[2019-02-04] MEDS ORDERED: fentaNYL citrate 100 MCG/2 ML VIAL ONE (08:33)
[2019-02-04] MEDS ORDERED: ONDANSETRON INJ 2 MG/ML 2 ML VIAL IV PRN ×3 (09:18→15:00)
[2019-02-04] MEDS ORDERED: fentaNYL citrate 100 MCG/2 ML VIAL IV PRN (09:18)
[2019-02-04] MEDS ORDERED: ePHEDrine sulfate 50 MG/ML AMP IV PRN ×2 (09:18→09:48)
[2019-02-04] MEDS ORDERED: ATROPINE SULFATE 0.1 MG/ML 10ML SYR IV PRN ×2 (09:18→09:48)
[2019-02-04] MEDS ORDERED: VANCOMYCIN HCL 1000MG/20ML VIAL ONE (09:44)
[2019-02-04] MEDS ORDERED: SCOPOLAMINE 1.5 MG TDSY ONE (09:45)
[2019-02-04] MEDS ORDERED: THROMBIN FOR SOLN 20000 UNIT KIT ONE (09:45)
[2019-02-04] MEDS ORDERED: GELATIN SPONGE SZ 100 ONE (09:45)
[2019-02-04] MEDS ORDERED: BUPIVACAINE/EPINEPHRINE 0.5% MPF 1:200,000 30 ML VIAL ONE (09:45)
[2019-02-04] MEDS ORDERED: BACITRACIN INJ 50,000 UNIT VIAL ONE (09:45)
[2019-02-04] MEDS ORDERED: HYDROmorphone INJ 2 MG/ML SYR/VIAL ONE (09:47)
[2019-02-04] MEDS ORDERED: SCOPOLAMINE 1.5 MG TDSY TD ONE (09:48)
--- NOTE | 2019-02-04 10:01 | History & Physical Bridge Note ---
Date of Service February 04, 2019 History & Physical Bridge Note I have examined the patient, reviewed the History & Physical and in the interval since the performance of the History & Physical I have noted the following changes of clinical significance: no changes noted
[2019-02-04] MEDS ORDERED: ROCURONIUM BROMIDE 10 MG/ML 5 ML VIAL ONE (10:40)
[2019-02-04] MEDS ORDERED: PROPOFOL IV EMULSION 10 MG/ML 20 ML VIAL IV ONE (10:40)
[2019-02-04] MEDS ORDERED: ONDANSETRON INJ 2 MG/ML 2 ML VIAL ONE (10:40)
[2019-02-04] MEDS ORDERED: LARYING-O-JET KIT (LTA) ONE (10:40)
[2019-02-04] MEDS ORDERED: NEOSTIGMINE METHYLSULFATE 5 MG/5 ML SYR ONE (10:40)
[2019-02-04] MEDS ORDERED: DEXAMETHASONE SOD INJ 4 MG/ML VIAL ONE (10:40)
[2019-02-04] MEDS ORDERED: GLYCOPYRROLATE 0.2 MG/ML VIAL ONE (10:40)
[2019-02-04] MEDS ORDERED: LIDOCAINE HCL 2% 2 ML VIAL/AMP(20MG/ML) INFIL ONE (10:40)
[2019-02-04] MEDS ORDERED: ePHEDrine sulfate 50 MG/ML SYR ONE (10:40)
--- NOTE | 2019-02-04 11:04 | Fluoroscopy Report ---
FL spine 1V any level CLINICAL HISTORY: 38 years-old Female presenting with L5-S1 DISCECTOMY. TECHNIQUE: 1 fluoroscopic image(s) recorded as part of an intraoperative procedure. COMPARISON: MRI from 07/25/2018. FINDINGS/IMPRESSION: Surgical and she mentation projects over the L5-S1 level. Normal anatomic alignment. Please see surgical report for further details. Fluoroscopy dosage (mGy): 1.63. Fluoroscopy time: 1.9 seconds. Number or time of high level fluoroscopy (HLF), digital spot, or digital subtraction images: 0. Electronically signed by: Jose L Degroot M.D. 02/04/2019 11:03 AM
--- NOTE | 2019-02-04 11:20 | Post Operative Brief Note ---
Immediate Post Op Note v1 Date of Surgery February 04, 2019 Pre & Post Diagnosis Operation Date: 02/04/19 09:50 Pre-Op Diagnosis: Disc Herniation Post-Op Diagnosis: Disc Herniation Procedure Operation Date: 02/04/19 09:50 Actual Procedures p L5-S1 Discectomy(Not Applicable) - Eric Dominguez DO Surgeon Eric Dominguez DO Director Account Management thai Estimated Blood Loss 20 Findings Consistent with Post-Op Diagnosis Drains Hemovac Drain
--- NOTE | 2019-02-04 11:22 | Post Operative Brief Note ---
Immediate Post Op Note v1 Date of Surgery February 04, 2019 Pre & Post Diagnosis Operation Date: 02/04/19 09:50 Pre-Op Diagnosis: Disc Herniation Post-Op Diagnosis: Disc Herniation Procedure Operation Date: 02/04/19 09:50 Actual Procedures p L5-S1 Discectomy(Not Applicable) - Eric Dominguez DO Surgeon Eric Dominguez DO Bit Shaver thai Estimated Blood Loss 20 Findings Consistent with Post-Op Diagnosis Drains Hemovac Drain Overlapping Procedure I was immediately available: during the entire case.
[2019-02-04] MEDS: HYDROmorphone INJ 1 MG/ML SYRINGE IV PRN ×4 (11:34→11:49)
--- NOTE | 2019-02-04 11:58 | Operative Report ---
DATE OF OPERATION: 02/04/2019 PREOPERATIVE DIAGNOSIS: Disk herniation, L5-S1. POSTOPERATIVE DIAGNOSIS: Disk herniation, L5-S1. PROCEDURE: Lumbar spine L5-S1 discectomy. SURGEON: Eric Dominguez DO. TRUCK DRIVER INSTRUCTOR: Lance Lincoln PA-C. COMPLICATIONS: Zero. BLOOD LOSS: 20 mL. ANESTHETIC: General. Prior to patient coming back to the Operating Room, the patient was carefully marked and identified in the holding area. During surgery, formal timeout was obtained. The patient was taken to the Operating Room. A general intubated anesthetic provided to the patient, placed prone, prepped and draped sterile. We made a skin incision, fascial incision. We premarked her prior to the skin incision L5-S1 interspace. We dissected down the lamina at L5-S1. We did a foraminotomy, partial facetectomy. We took off ligamentum flavum hypertrophy. I retracted the nerve root in medial direction, which was completely swollen and was failed to do a discectomy at L5-S1. The only negative was that the disk was sort of calcified, it was hard and not easy to dissect. We complete the foraminotomy. I made sure the nerve was free of any type of physical obstruction. We irrigated and closed in layers with 1 Vicryl, 2-0 and 3-0 nylon. Sterile dressings applied. The patient returned to PACU in improved, stable condition. Sponge and needle count correct at the close. I attest to the content of the Intraoperative Record and any orders documented therein. Any exception s are noted below.
--- NOTE | 2019-02-04 12:00 | Operative Report ---
DATE OF OPERATION: 02/04/2019 ADDENDUM The wound was closed in layered fashion over vancomycin powder and over a Hemovac drain. I attest to the content of the Intraoperative Record and any orders documented therein. Any exception s are noted below.
--- NOTE | 2019-02-04 12:32 | Anesthesiology Progress Note ---
Date of Service February 04, 2019 Anesthesia Post Procedure Vital Signs Vital Signs: Temp Pulse Pulse Resp BP Pulse Ox 02/04/19 12:20 76 15 121/66 99 02/04/19 12:05 97.5 F L 89 17 120/72 98 02/04/19 11:55 71 14 103/51 L 100 02/04/19 11:45 95 H 20 123/69 100 02/04/19 11:35 86 14 124/65 100 02/04/19 11:25 80 16 115/63 100 02/04/19 11:18 98.6 F 108 H 16 137/85 100 02/04/19 08:54 98.4 F 80 19 134/84 98 Pain Intensity Back: Pain Intensity: 3 Transfer of Care Handoff Completed per policy Notes Mental Status: alert / awake / arousable and participated in evaluation Patient Amnestic to Procedure: Yes Nausea / Vomiting: adequately controlled Pain: adequately controlled Airway Patency, RR, SpO2: stable & adequate BP & HR: stable & adequate Hydration State: stable & adequate Anesthetic Complications: no major complications apparent and Pt Satisfied with anesthetic care
[2019-02-04] MEDS ORDERED: NON-FORMULARY MEDICATION (Levonorgestrel [Mirena] 1 EA) IU SCH (12:33)
[2019-02-04] MEDS ORDERED: HYDROmorphone INJ 1 MG/ML SYRINGE IV PRN (12:33)
[2019-02-04] MEDS ORDERED: SUMAtriptan succinate 50 MG TAB PO PRN (12:33)
[2019-02-04] MEDS ORDERED: ACETAMINOPHEN 1,000 MG/100 ML VIAL IV PRN (12:33)
[2019-02-04] MEDS ORDERED: MAGNESIUM HYDROXIDE SUSP 30 ML UDC PO PRN (12:33)
[2019-02-04] MEDS ORDERED: OXYCODONE HCL IR 5 MG TAB (IMMEDIATE RELEASE) PO PRN (12:33)
[2019-02-04] MEDS ORDERED: CHECK SCOPOLAMINE PATCH PLACEMENT SCH (16:00)
[2019-02-04] MEDS: OXYCODONE HCL IR 5 MG TAB (IMMEDIATE RELEASE) PO PRN ×2 (16:01→22:08)
[2019-02-04] MEDS: CEFAZOLIN 2000MG 2,000 MG/15 ML SYR IV SCH (18:15)
[2019-02-04] MEDS: SODIUM CHLORIDE 0.9% 1000ML 1,000 ML IV SCH ×2 (20:07→23:25)
[2019-02-04] MEDS: DOCUSATE SODIUM 100 MG CAP PO SCH (20:08)
[2019-02-05] MEDS: CEFAZOLIN 2000MG 2,000 MG/15 ML SYR IV SCH ×2 (03:00→11:00)
[2019-02-05] MEDS: OXYCODONE HCL IR 5 MG TAB (IMMEDIATE RELEASE) PO PRN ×3 (04:29→13:17)
[2019-02-05] MEDS: HYDROmorphone INJ 1 MG/ML SYRINGE IV PRN ×2 (07:37→11:06)
--- NOTE | 2019-02-05 07:57 | Anesthesiology Progress Note ---
Date of Service February 05, 2019 Anesthesia Post Procedure Vital Signs Vital Signs: Temp Pulse Pulse Pulse Resp BP BP 02/05/19 06:58 36.9 C 67 16 101/60 02/05/19 02:55 36.8 C 72 16 100/60 02/04/19 23:00 37.2 C 57 L 16 116/69 02/04/19 19:00 36.9 C 86 16 114/68 02/04/19 15:35 36.6 C 66 17 110/71 02/04/19 14:35 98 H 14 138/89 02/04/19 13:32 36.6 C 88 12 108/66 02/04/19 13:02 36.6 C 18 111/70 02/04/19 12:30 36.4 C L 72 16 104/61 02/04/19 12:20 76 15 121/66 02/04/19 12:05 36.4 C L 89 17 120/72 02/04/19 11:55 71 14 103/51 L 02/04/19 11:45 95 H 20 123/69 02/04/19 11:35 86 14 124/65 02/04/19 11:25 80 16 115/63 02/04/19 11:18 37 C 108 H 16 137/85 02/04/19 08:54 36.9 C 80 19 134/84 Pulse Ox 02/05/19 06:58 96 02/05/19 02:55 97 02/04/19 23:00 95 02/04/19 19:00 92 02/04/19 15:35 94 02/04/19 14:35 99 02/04/19 13:32 100 02/04/19 13:02 99 02/04/19 12:30 93 02/04/19 12:20 99 02/04/19 12:05 98 02/04/19 11:55 100 02/04/19 11:45 100 02/04/19 11:35 100 02/04/19 11:25 100 02/04/19 11:18 100 02/04/19 08:54 98 Pain Intensity Back: Pain Intensity: 3 Notes Mental Status: alert / awake / arousable and participated in evaluation Patient Amnestic to Procedure: Yes Nausea / Vomiting: improving with treatment Pain: adequately controlled Airway Patency, RR, SpO2: stable & adequate BP & HR: stable & adequate Hydration State: stable & adequate Anesthetic Complications: no major complications apparent and Pt Satisfied with anesthetic care
[2019-02-05] MEDS: DOCUSATE SODIUM 100 MG CAP PO SCH (08:34)
[2019-02-05] MEDS ORDERED: BuPROPion XL 300 MG TABCR PO SCH (09:00)
[2019-02-06] MEDS ORDERED: BISACODYL 5 MG TABEC PO PRN (06:00)
--- NOTE | 2019-02-06 08:28 | Discharge Summary ---
SUBJECTIVE: She is alert, oriented, moderate complaints of pain today, but no neurological deficits. Vital signs stable. She has had an uneventful course. Taking p.o. No nausea, vomiting or chest pain. She will be discharged home later this morning in improved stable condition. Will change her dressing. She has a followup appointment in 14 days. She has prescription on her chart. Instructions, precautions have been provided.
--- NOTE | 2019-02-06 11:00 | Coding Query ---
CODING QUERY To promote full compliance with coding requirements relating to patient care, provider participation is requested in all cases of senior talent acquisition specialist uncertainty. Please assist us with the question(s) below: Coding Question(s): Could you please clarify what side the Lumbar Spine L5-S1 Discectomy was performed on: ____ Right ____ Left ____ Bilateral ____ Other (please clarify) Physician's Response(s): Thank you Ivelisse Hansen Principal Diagnosis: "�that condition established after study, to be chiefly responsible for occasioning the admission of the patient to the hospital for care." Co-Existing Principal Diagnosis: "�when two or more diagnoses equally meet the criteria for principal diagnosis as determined by the circumstances of admission, diagnostic work up, and/or therapy provided, and the Alphabetic Index, Tabular List, or another coding guideline does not provide sequencing direction, any one of the diagnoses may be sequenced first." "When the physician has documented what appears to be a current diagnosis in the body of the record, but has not included the diagnosis in the final diagnostic statement, the physician should be asked whether the diagnosis should be added." (Source [facility]oding [facility] 2 QTR90. p3-4) LEOLA
--- NOTE | 2019-02-07 15:49 | Operative Report ---
DATE OF OPERATION: 02/04/2019 CODING QUERY The query was on which side the discectomy was performed, it was on the right. I attest to the content of the Intraoperative Record and any orders documented therein. Any exception s are noted below.
== END 2019-02-05 13:50 | disposition home or self-care (01) ==
LOC: 3E 08:17 → ASU 08:17